=== PATIENT | male | born 1960 | race Caucasian/White ===

== ENCOUNTER 2020-03-27 12:48 | Emergency (ER) | payer OTHER ==
[~2020-03-27] VITALS: Ht 182.9 cm; Wt 90.7 kg
--- NOTE | 2020-03-27 13:33 | Diagnostic Imaging Report ---
PROCEDURE: CT head and CT cervical spine without contrast. TECHNIQUE: Multiple contiguous axial images were obtained through the brain and cervical spine without the use of intravenous contrast. Sagittal and coronal reformations through the cervical spine were then performed. Auto Exposure Controls were utilized during the CT exam to meet ALARA standards for radiation dose reduction. INDICATION: Fell down stairs. Head and neck pain. FINDINGS: CT head: The ventricles and cortical gyral pattern are normal. There is no intra-cranial hemorrhage or mass effect. No extra-axial fluid collection. Basal cisterns are clear. Pituitary is not enlarged. CP angles are normal. The mastoid air cells and middle ear is well-aerated and clear. There is a rather large retention cyst in the right maxillary sinus measuring approximately 2 cm. No calvarial lesions. IMPRESSION: 1. No acute intracranial abnormalities. 2. Retention cyst noted in the right maxillary sinus. CT cervical spine: Sagittal and coronal reformatted images show good alignment. Body height is well-maintained. The odontoid intact. The atlantoaxial joint shows good alignment. There is diffuse cervical spondylosis. Most advanced changes are at the C5-C6 level with loss of disc space height. Uncovertebral hypertrophy is present bilaterally causing mild to moderate encroachment along the lateral recesses more severe on the right. No significant central canal stenosis noted. Facets show good alignment throughout. No fractures are demonstrated. IMPRESSION: Rather advanced degenerative spondylosis C5-C6. No acute abnormalities demonstrated. These findings were discussed with Dr. Chandra in the Emergency Room. Dictated by: Dictated on workstation # [id number]
[2020-03-27] MEDS ORDERED: oxyCODONE/APAP 5/325MG (PERCOCET 5) TABLET PO ONE (14:15)
--- NOTE | 2020-03-27 14:17 | Diagnostic Imaging Report ---
PROCEDURE: CT chest without contrast. TECHNIQUE: Multiple contiguous axial images were obtained through the chest without the use of intravenous contrast. Auto Exposure Controls were utilized during the CT exam to meet ALARA standards for radiation dose reduction. INDICATION: Fall with back pain to thoracic spine and bilateral medial scapula. FINDINGS: The thoracic spine shows good alignment on sagittal reformatted images. Body height is well-maintained. Facets show good alignment. There are moderate degenerative facet and disc changes noted throughout the thoracic spine. Anterior bony ridging osteophytes are present from T7 through T10. The scapula appear intact bilaterally. The glenohumeral joints are in good alignment. Moderate degenerative changes are noted of the glenohumeral joints bilaterally. No evidence of rib fractures. The lungs are well-aerated. No infiltrates. No lung contusion. No pneumothorax or pleural effusion. There are a few calcified granuloma with no other parenchymal masses. No evidence of aortic aneurysm. No mediastinal or hilar adenopathy of pathologic size. IMPRESSION: 1. No bony abnormalities. 2. Lungs are clear. Dictated by: Dictated on workstation # [id number]
--- NOTE | 2020-03-27 14:36 | ED Fall/Injury ---
General Chief Complaint: Trauma-Non Activation Stated Complaint: FALL;SHOULDER PAIN;HEADACHE;HIGH BP Nursing Triage Note: FELL BACKWARD DOWN APPROX X4 STAIRS Source: patient Exam Limitations: no limitations History of Present Illness Date Seen by Provider: Mar 27, 2020 Time Seen by Provider: 12:50 Initial Comments This 60-year-old gentleman presents to the emergency room by private vehicle as referred from the urgent care clinic due to neck pain and headache after fall. He got his toes caught up on something causing him to trip and fall backward, striking his head on concrete. X-ray imaging of the spine was performed at urgent care and no abnormalities were found. They became concerned about the degree of his pain and then referred him to the emergency room. He has no neurologic deficits. There was no loss of consciousness. C-collar was immediately applied upon his arrival. Patient describes a pinching sensation on the right side of his neck if he turns his head. He describes pain in his head, lower neck, and in the upper back surrounding the upper thoracic spine. Allergies and Home Medications Allergies Coded Allergies: No Known Allergies (Verified Allergy, Unknown, 03/27/20) Patient Home Medication List Home Medication List Reviewed: Yes Review of Systems Review of Systems Constitutional: no symptoms reported Eyes: No Symptoms Reported Ears, Nose, Mouth, Throat: no symptoms reported Respiratory: no symptoms reported Cardiovascular: no symptoms reported Gastrointestinal: no symptoms reported Genitourinary: no symptoms reported Musculoskeletal: see HPI Skin: no symptoms reported Psychiatric/Neurological: No Symptoms Reported Past Oososjp-Sxoxbe-Xkleml Hx Past Med/Social Hx: Reviewed Nursing Past Med/Soc Hx Patient Social History Recent Foreign Travel: No Contact w/Someone Who Travel: No Recent Infectious Disease Expo: No Physical Abuse: No Sexual Abuse: No Mistreated: No Fear: No Past Medical History Surgeries: Yes Respiratory: No Cardiac: No Neurological: No Genitourinary: No Gastrointestinal: No Musculoskeletal: No Endocrine: No HEENT: No Cancer: No Psychosocial: No Physical Exam Vital Signs Vital Signs - First Documented 03/27/20 03/27/20 13:08 14:46 Temp 36.7 Pulse 65 Resp 19 B/P (MAP) 157/110 (126) Pulse Ox 97 O2 Delivery Room Air Capillary Refill : Less Than 3 Seconds Height, Weight, BMI Height: '" Weight: lbs. oz. 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, no motor/sensory deficits, alert, normal mood/affect, oriented x 3 Skin: normal color, warm/dry [place] Coma Score Best Eye Response: (4) Open Spontaneously Best Verbal Response: (5) Oriented Best Motor Response: (6) Obeys Commands Dara Total: 15 Progress/Results/Core Measures Results/Orders My Orders Orders - VIVIENNE CHANDRA MD Ct Head/Cervical Spine Wo (03/27/20 13:02) Ct Chest Wo (03/27/20 13:10) Oxycodone/Apap 5/325mg Tablet (Percocet (03/27/20 14:15) Vital Signs/I&O 03/27/20 03/27/20 13:08 14:46 Temp 36.7 Pulse 65 67 Resp 19 17 B/P (MAP) 157/110 (126) 137/88 Pulse Ox 97 O2 Delivery Room Air Room Air Blood Pressure Mean: 126 Progress Progress Note : Progress Note CT imaging was obtained and revealed no serious injuries. C-collar was cleared. Patient declined pain medication and was discharged home. Diagnostic Imaging Diagonstic Imaging: CT Plain Films/CT/US/NM/MRI: chest Comments CT chest viewed by me and report reviewed. See report below: NAME: MEMO COOK [facility] REC#: [id number] PT STATUS: DEP ER : 1960 PHYSICIAN: VIVIENNE CHANDRA MD ADMIT DATE: 03/27/20/ER Signed Date of Exam:03/27/20 CT CHEST WO PROCEDURE: CT chest without contrast. TECHNIQUE: Multiple contiguous axial images were obtained through the chest without the use of intravenous contrast. Auto Exposure Controls were utilized during the CT exam to meet ALARA standards for radiation dose reduction. INDICATION: Fall with back pain to thoracic spine and bilateral medial scapula. FINDINGS: The thoracic spine shows good alignment on sagittal reformatted images. Body height is well-maintained. Facets show good alignment. There are moderate degenerative facet and disc changes noted throughout the thoracic spine. Anterior bony ridging osteophytes are present from T7 through T10. The scapula appear intact bilaterally. The glenohumeral joints are in good alignment. Moderate degenerative changes are noted of the glenohumeral joints bilaterally. No evidence of rib fractures. The lungs are well-aerated. No infiltrates. No lung contusion. No pneumothorax or pleural effusion. There are a few calcified granuloma with no other parenchymal masses. No evidence of aortic aneurysm. No mediastinal or hilar adenopathy of pathologic size. IMPRESSION: 1. No bony abnormalities. 2. Lungs are clear. Dictated by: Dictated on workstation # [id number] Dict: 03/27/20 1359 Trans: 03/27/201706 [facility] [id number] Interpreted by: EVE BARBA MD Electronically signed by: EVE BARBA MD 03/27/201706 Diagonstic Imaging: CT Plain Films/CT/US/NM/MRI: c-spine, head Comments CT head and C-spine viewed by me and report reviewed. See report below: NAME: MEMO COOK [facility] REC#: [id number] PT STATUS: DEP ER : 1960 PHYSICIAN: VIVIENNE CHANDRA MD ADMIT DATE: 03/27/20/ER Signed Date of Exam:03/27/20 CT HEAD/CERVICAL SPINE WO PROCEDURE: CT head and CT cervical spine without contrast. TECHNIQUE: Multiple contiguous axial images were obtained through the brain and cervical spine without the use of intravenous contrast. Sagittal and coronal reformations through the cervical spine were then performed. Auto Exposure Controls were utilized during the CT exam to meet ALARA standards for radiation dose reduction. INDICATION: Fell down stairs. Head and neck pain. FINDINGS: CT head: The ventricles and cortical gyral pattern are normal. There is no intra-cranial hemorrhage or mass effect. No extra-axial fluid collection. Basal cisterns are clear. Pituitary is not enlarged. CP angles are normal. The mastoid air cells and middle ear is well-aerated and clear. There is a rather large retention cyst in the right maxillary sinus measuring approximately 2 cm. No calvarial lesions. IMPRESSION: 1. No acute intracranial abnormalities. 2. Retention cyst noted in the right maxillary sinus. CT cervical spine: Sagittal and coronal reformatted images show good alignment. Body height is well-maintained. The odontoid intact. The atlantoaxial joint shows good alignment. There is diffuse cervical spondylosis. Most advanced changes are at the C5-C6 level with loss of disc space height. Uncovertebral hypertrophy is present bilaterally causing mild to moderate encroachment along the lateral recesses more severe on the right. No significant central canal stenosis noted. Facets show good alignment throughout. No fractures are demonstrated. IMPRESSION: Rather advanced degenerative spondylosis C5-C6. No acute abnormalities demonstrated. These findings were discussed with Dr. Chandra in the Emergency Room. Dictated by: Dictated on workstation # [id number] Dict: 03/27/20 1327 Trans: 03/27/20 1707 [facility] [id number] Interpreted by: EVE BARBA MD Electronically signed by: EVE BARBA MD 03/27/201706 Departure Impression Primary Impression: Fall on same level Qualified Codes: W18.30XA - Fall on same level, unspecified, initial encounter Additional Impressions: Neck pain Acute upper back pain Post-traumatic headache Qualified Codes: G44.319 - Acute post-traumatic headache, not intractable Disposition: 01 HOME, SELF-CARE Condition: Stable Departure-Patient Inst. Decision time for Depature: 14:33 Patient Instructions: Minor Head Injury (DC) Add. Discharge Instructions: For pain you may take ibuprofen up to 600 mg every 6 hours as needed and Tylenol (acetaminophen) up to 1000 mg every 6 hours as needed. Drink plenty of clear liquids to stay well-hydrated. Try to relax the muscles of your upper back and neck as much as possible. Bruised or sprained areas may benefit from icing in 20 minute intervals. Tight or spasming muscles may benefit from gentle heat. Stay home from work tomorrow and rest without strenuous activity. Gradually advance level of activity as pain allows. You may be more sore when you wake up in the morning due to stiffness. Return to care if you have worsening symptoms especially if you develop numbness, tingling, or weakness in any of your extremities, difficulty controlling bowels or bladder, numbness of the groin, or other new symptoms. All discharge instructions reviewed with patient and/or family. Voiced understanding. Work/School Note: Work Release Form Date Seen in the Emergency Department: Mar 27, 2020 Return to Work: Mar 29, 2020 Other Restrictions Listed Below: Gradually increase level of activity as pain allows. VIVIENNE CHANDRA MD Mar 27, 2020 14:36
[2020-03-27 14:46] VITALS: BP 137/88
== END 2020-03-27 14:46 | disposition home or self-care (01) ==
LOC: ER 12:49
DX: M54.2 Cervicalgia (principal); M54.9 Dorsalgia, unspecified; G44.319 Acute post-traumatic headache, not intractable; W18.39XA Other fall on same level, initial encounter
CPT/HCPCS: 70450; 71250; 72125

== ENCOUNTER → 2020-08-26 | Outpatient (CLI) | payer OTHER ==
[~2020-08-26] MED LIST: CATHETER FLUSH 10 ML SYR IV PRN; HOLD METFORMIN - RECEIVED CONTRAST 20 ML VIAL IV SCH; IOHEXOL 350 MG/ML 150 ML (OMNIPAQUE 350) VIAL IV ONE; NS 100 ML (IVPB) BAG IV ONE
[2020-08-26 15:41] LABS: BUN/CREATININE RATIO 15; CALCIUM 9.6 MG/DL (8.5-10.1); CARBON DIOXIDE 29 MMOL/L (21-32); CHLORIDE 102 MMOL/L (98-107); GFR ESTIMATED > 60; GLUCOSE 121 MG/DL (70-105); POTASSIUM 3.9 MMOL/L (3.6-5.0); SODIUM 140 MMOL/L (135-145)
--- NOTE | 2020-08-26 16:43 | Diagnostic Imaging Report ---
PROCEDURE: CT angiography of the chest with contrast. TECHNIQUE: Multiple contiguous axial images were obtained through the chest after uneventful bolus administration of intravenous contrast. 3D reconstructed CTA MIP acquisitions were also performed. Auto Exposure Controls were utilized during the CT exam to meet ALARA standards for radiation dose reduction. INDICATION: COVID, shortness of breath, elevated D-dimer. COMPARISON: Exam compared with chest CT of 03/27/2020. FINDINGS: There are patchy bilateral groundglass densities, greatest in the right greater than left upper lobes, in keeping with history of COVID. No blebs, bullous disease, or air cysts. There is no effusion or pneumothorax. Pulmonary arterial branches are widely patent and well opacified. There was no evidence for PE. Thoracic aorta is patent and nonaneurysmal. Visualized upper abdomen is unremarkable. IMPRESSION: Bilateral predominantly upper lobe groundglass infiltrates. Negative for PE or effusion. No other significant finding. Dictated by: Dictated on workstation # [id number]
== END ==
LOC: RAD FS 14:58
PROVIDERS: ATTEND Family Medicine
DX: R79.1 Abnormal coagulation profile (principal); R91.8 Other nonspecific abnormal finding of lung field; R06.02 Shortness of breath; Z86.16 Personal history of COVID-19
CPT/HCPCS: 36415; 71275; 80048